=== PATIENT | male | born 1995 | race Caucasian/White ===

== ENCOUNTER 2020-06-07 15:56 | Emergency (ER) | payer BC ==
[~2020-06-07] VITALS: Ht 185.4 cm; Wt 74.8 kg
[2020-06-07] MEDS ORDERED: SODIUM CHLORIDE 0.9% 1,000ML IVBOLUS ONE ×3 (16:30→22:00)
[2020-06-07 16:54] LABS: MEAN CORPUSCULAR HGB CONC 35.1 g/dL (33.2-36.2)
[2020-06-07 16:58] LABS: ALANINE AMINOTRANSFERASE 28 U/L (12-78); ANION GAP 4 mmol/L (5-15); CALCIUM 9.2 mg/dL (8.5-10.1); CHLORIDE 99 mmol/L (98-107)
[2020-06-07 17:00] LABS: ALKALINE PHOSPHATASE 53 U/L (45-117); BILIRUBIN,TOTAL 0.6 mg/dL (0.2-1.0); TOTAL PROTEIN 7.8 g/dL (6.4-8.2)
[2020-06-07 17:01] LABS: MEAN CORPUSCULAR HEMOGLOBIN 31.6 pg (27.5-34.5); MEAN PLATELET VOLUME 9.5 fL (7.4-10.4); PLATELET COUNT 175 x10^3/uL (130-400); RED BLOOD COUNT 5.19 x10^6/uL (4.38-5.82); RED CELL DISTRIBUTION WIDTH 11.8 % (9.4-14.8)
[2020-06-07 17:27] LABS: MD YES
[2020-06-07 17:30] LABS: BAND#(MANUAL) 1.94 x10^3/uL; BANDS%(MANUAL) 22 % (0-7); LYMPH#(MANUAL) 0.88 x10^3/uL (1-3.4); LYMPHS% (MANUAL) 10 % (22-44); MONOS#(MANUAL) 0.44 x10^3/uL (0.3-2.7); MONOS% (MANUAL) 5 % (2-9); SEG#(MANUAL) 5.54 x10^3/uL (1.8-6.8); SEGS% (MANUAL) 63 % (42-75)
[2020-06-07 17:31] LABS: <PLATELET ESTIMATE> ADEQUATE; <PLT MORPHOLOGY> NORMAL PLT MORPH; <RBC MORPHOLOGY> NORMAL
[2020-06-07] MEDS ORDERED: SODIUM CHLORIDE FLUSH 10ML SYR IVF ONE (20:30)
--- NOTE | 2020-06-07 21:18 | NUR ---
pt resting comfortably on cr monitor. labs drawn, iv started to left ac. pt had ct done. LP set up at bedside for MD. easy respirations. gf at bedside.
[2020-06-07] MEDS ORDERED: LIDOCAINE-MPF 1%, 5ML ONE (21:29)
[2020-06-07] MEDS ORDERED: VANCOMYCIN PER PHARMACY MC PRN (21:30)
[2020-06-07] MEDS ORDERED: VANCOMYCIN 1,800 MG in SODIUM CHLORIDE 0.9% 250 ML IV ONE (21:30)
[2020-06-07] MEDS ORDERED: CEFTRIAXONE PMX 2GM/50ML 50 ML IVPB ONE (21:30)
[2020-06-07] MEDS ORDERED: ONDANSETRON 2MG/ML, 2ML IVPush ONE (22:00)
[2020-06-07] MEDS ORDERED: MORPHINE SULFATE 4 MG/ML, 1ML IVPush PRN (22:00)
--- NOTE | 2020-06-07 22:10 | NUR ---
pt prepared for LP by [employer], and tolerated well, now lying on back for a couple hours. iv site intact. iv fluids flowing and antibiotics started. see emar. pt c/o pain to neck and head. pain meds given. remains on cr monitor.
[2020-06-07] MEDS ORDERED: ONDANSETRON 2MG/ML, 2ML ONE (22:16)
[2020-06-07] MEDS ORDERED: MORPHINE SULFATE 4 MG/ML, 1ML ONE (22:16)
[2020-06-07] MEDS ORDERED: CEFTRIAXONE PMX 2GM/50ML 50 ML ONE (22:16)
[2020-06-07 22:41] LABS: GLUCOSE, CSF 69 mg/dL (40-80); TOTAL PROTEIN,CSF 22 mg/dL (15-45)
--- NOTE | 2020-06-07 23:00 | NUR ---
vancomycin started via iv, and pt tolerating well. on iv pump. over 2 hours.
--- NOTE | 2020-06-07 23:31 | NUR ---
vancomycin flowing, no red man noted, and pt without complaints resting comfortably on cr monitor. easy respirations and aeration.
[2020-06-08 00:20] VITALS: BP 113/56
--- NOTE | 2020-06-08 00:21 | NUR ---
pt remains calm resting in bed, with gf at bedside. iv site intact, no redness or swelling.
[2020-06-08] MEDS ORDERED: PROCHLORPERAZINE 5 MG/ML, 2ML IVPush ONE (00:30)
[2020-06-08] MEDS ORDERED: ACETAMINOPHEN 500 MG TABLET PO ONE (00:30)
[2020-06-08] MEDS ORDERED: KETOROLAC 30 MG/1 ML IVPush ONE (00:30)
[2020-06-08] MEDS ORDERED: DIPHENHYDRAMINE 50 MG/ML, 1ML IVPush ONE (00:30)
[2020-06-08] MEDS ORDERED: ACETAMINOPHEN 500 MG TABLET ONE (00:40)
[2020-06-08] MEDS ORDERED: PROCHLORPERAZINE 5 MG/ML, 2ML ONE (00:40)
[2020-06-08] MEDS ORDERED: KETOROLAC 30 MG/1 ML ONE (00:40)
[2020-06-08] MEDS ORDERED: DIPHENHYDRAMINE 50 MG CAPSULE ONE (00:40)
--- NOTE | 2020-06-08 02:06 | NUR ---
piv d/cd, cath intact. no issues. pt feels better, ambulatory, dc instructions given, and pt understood and ambulated out of er.
== END 2020-06-08 02:07 | disposition home or self-care (01) ==
LOC: ED 19:06
DX: R51.9 Headache, unspecified (principal); R11.2 Nausea with vomiting, unspecified; R19.7 Diarrhea, unspecified; R50.9 Fever, unspecified; Z20.828 Contact with and (suspected) exposure to other viral communicable diseases; M54.2 Cervicalgia; R00.0 Tachycardia, unspecified
CPT/HCPCS: 36415; 62328; 70450; 80053; 82945; 83605; 84145; 84157; 85025; 87040; 87070; 87205; 87252; 87635; 89051; 96361; 96365; 96367; 96375; 99285; J0696; J0780; J1200; J1885; J2270; J2405; J3370; J7030; J7050